=== PATIENT | female | born 1980 | race Two or more races ===

== ENCOUNTER 2020-03-22 05:17 | Day surgery (SDC) | payer BC, OTHER ==
[2020-03-20 10:29] LABS: ALBUMIN 3.6 g/dL (3.4-5.0); ANION GAP 3 mmol/L (5-15); CALCIUM 9.2 mg/dL (8.5-10.1); CHLORIDE 107 mmol/L (98-107)
[2020-03-20 10:31] LABS: ALANINE AMINOTRANSFERASE 20 U/L (12-78); ALKALINE PHOSPHATASE 108 U/L (45-117); BILIRUBIN,TOTAL 0.6 mg/dL (0.2-1.0); CREATININE 0.78 mg/dL (0.55-1.02); TOTAL PROTEIN 8.1 g/dL (6.4-8.2)
[~2020-03-22] VITALS: Ht 160 cm; Wt 122.1 kg
[~2020-03-22 05:17] MED LIST: METF500T17 PO; OMEP40CA42 PO
[2020-03-22 06:05] VITALS: BP 106/67
[2020-03-22] MEDS ORDERED: LACTATED RINGERS 1,000 ML IV SCH (06:30)
[2020-03-22] MEDS ORDERED: CHLORHEXIDINE 15 ML UDC MM ONE (06:30)
[2020-03-22 06:41] LABS: HCG UR SG 1.024 (1.003-1.030)
[2020-03-22] MEDS ORDERED: EPINEPHRINE 1 MG/ML, 1ML ONE (06:42)
[2020-03-22] MEDS ORDERED: LIDOCAINE 1%, 20ML ONE (06:42)
[2020-03-22] MEDS ORDERED: BUPIVACAINE/PF 0.5% ONE (06:42)
[2020-03-22] MEDS ORDERED: MIDAZOLAM 1 MG/ML, 2ML ONE (06:46)
[2020-03-22] MEDS ORDERED: FENTANYL PF 100 MCG/2ML ONE ×3 (06:46→07:59)
[2020-03-22] MEDS ORDERED: ACETAMINOPHEN 500 MG TABLET PO ONE (07:00)
[2020-03-22] MEDS ORDERED: KETOROLAC 30 MG/1 ML ONE (07:02)
[2020-03-22] MEDS ORDERED: DEXAMETHASONE 4 MG/ML, 5ML ONE (07:16)
[2020-03-22] MEDS ORDERED: PROPOFOL 10 MG/ML, 20ML ONE (07:16)
[2020-03-22] MEDS ORDERED: ONDANSETRON 2MG/ML, 2ML ONE ×2 (07:16→07:59)
[2020-03-22] MEDS ORDERED: LIDOCAINE-MPF 2% ,5ML ONE (07:16)
[2020-03-22] MEDS ORDERED: CEFAZOLIN 1,000 MG ONE (07:16)
[2020-03-22] MEDS ORDERED: hydrALAzine 20 MG/ML, 1ML IV PRN (07:30)
[2020-03-22] MEDS ORDERED: EPHEDRINE 50 MG/ML, 1ML IVPush PRN (07:30)
[2020-03-22] MEDS ORDERED: LABETALOL 5MG/ML, 20ML IV PRN (07:30)
[2020-03-22] MEDS ORDERED: PROMETHAZINE 25 MG/ML, 1ML IVPush PRN (07:30)
[2020-03-22] MEDS ORDERED: FENTANYL PF 100 MCG/2ML IV PRN (07:30)
[2020-03-22] MEDS ORDERED: HYDROmorphone 1 MG/ML, 1ML INJ IVPush PRN (07:30)
[2020-03-22] MEDS ORDERED: ONDANSETRON 2MG/ML, 2ML IVPush PRN (07:30)
[2020-03-22] MEDS ORDERED: OXYcodone 5 MG/5 ML ORAL.SOL UDC ONE (08:00)
[2020-03-22] MEDS: OXYcodone 5 MG/5 ML ORAL.SOL UDC PO PRN ×2 (08:04→10:02)
== END 2020-03-22 10:25 | disposition home or self-care (01) ==
LOC: OUT 05:17
PROVIDERS: ATTEND Orthopaedic Surgery Foot and Ankle Surgery
DX: S92.352K Displaced fracture of fifth metatarsal bone, left foot, subsequent encounter for fracture with nonunion (principal); X58.XXXD Exposure to other specified factors, subsequent encounter; K21.9 Gastro-esophageal reflux disease without esophagitis; Z79.899 Other long term (current) drug therapy; Z72.89 Other problems related to lifestyle; Z87.891 Personal history of nicotine dependence; Z82.49 Family history of ischemic heart disease and other diseases of the circulatory system; Z98.890 Other specified postprocedural states; Z20.828 Contact with and (suspected) exposure to other viral communicable diseases
CPT/HCPCS: 28322; 36415; 73660; 80053; 81025; C1713; J0690; J1100; J1885; J2250; J2405; J2704; J3010; J7120; U0003; 76000; J0171